=== PATIENT | female | born 1955 | race Caucasian/White ===

== ENCOUNTER 2020-12-31 13:48 | Outpatient (CLI) | payer MEDICARE | END 2020-12-31 13:49 | disposition home or self-care (01) | LOC: BICMAMMO 13:48 | PROVIDERS: ATTEND Family Medicine | DX: Z12.31 Encounter for screening mammogram for malignant neoplasm of breast (principal); M85.80 Other specified disorders of bone density and structure, unspecified site | CPT/HCPCS: 77063; 77067; 77080 ==

== ENCOUNTER 2023-11-02 08:53 | Day surgery (SDC) | payer OTHER ==
[2023-11-01 08:51] VITALS: BMI 26.5
[2023-11-02] MEDS ORDERED: PROPOFOL 20 ML ONE (09:42)
[2023-11-02] MEDS ORDERED: Lidocaine 2% PF 5 ML VIAL ONE (09:42)
[2023-11-02] MEDS ORDERED: fentaNYL PF 100 MCG/2 ML SYRINGE ONE (09:44)
[2023-11-02] MEDS ORDERED: Bupivacaine PF 0.5% 30 ML VIAL ONE (09:44)
[2023-11-02] MEDS ORDERED: Bacitracin Zinc Ointment 30 gm TUBE ONE (09:44)
[2023-11-02] MEDS ORDERED: Midazolam HCl 2 mg/2 ml Vial ONE (09:56)
[2023-11-02 10:00] LABS: #Eosinphils 0.1 thou/uL (0.0-0.7); #Monocytes 0.4 thou/uL (0.11-0.59); #Neutrophils 3.2 thou/uL (1.40-6.50); %Basophils 0.6 % (0.0-1.0); %Eosinophils 2.3 % (0.0-10.0); %Lymphocytes 27.7 % (21.0-51.0); %Monocytes 7.3 % (0.0-10.0); %Neutrophils 61.9 % (42.0-75.0); Hematocrit 38.4 % (36.0-47.0); Hemoglobin 12.5 g/dL (12.0-16.0); Mean Corpuscular HGB CONC 32.6 g/dL (32.0-36.0); Mean Corpuscular Hemoglobin 30.1 pg (27.0-31.0); Mean Corpuscular Volume 92.5 fl (78.0-98.0); Mean Platelet Volume 11.2 fL (7.4-10.4); Platelet Count 211 10x3/uL (130-400); RBC Distribution Width 12.8 % (11.5-14.5); Red Blood Cell (RBC) Count 4.15 mill/uL (4.20-5.40); White Blood Cell (WBC) Count 5.2 10x3/uL (4.8-10.8)
[2023-11-02] MEDS ORDERED: Sodium Chloride 0.9% 100 ML ONE (10:02)
[2023-11-02] MEDS ORDERED: CEFAZOLIN 2 GM VIAL ONE (10:02)
== END 2023-11-02 11:53 | disposition home or self-care (01) ==
LOC: SDC 08:53
PROVIDERS: ATTEND Orthopaedic Surgery Hand Surgery
PROC: 3E023GC Introduction of Other Therapeutic Substance into Muscle, Percutaneous Approach (ICD-10-PCS; principal; 2023-11-02)
DX: M62.422 Contracture of muscle, left upper arm (principal); M62.432 Contracture of muscle, left forearm; M65.331 Trigger finger, right middle finger; M65.4 Radial styloid tenosynovitis [de Quervain]; G56.02 Carpal tunnel syndrome, left upper limb; M65.311 Trigger thumb, right thumb; M65.312 Trigger thumb, left thumb; G80.8 Other cerebral palsy; I10 Essential (primary) hypertension; E78.5 Hyperlipidemia, unspecified; G40.909 Epilepsy, unspecified, not intractable, without status epilepticus; Z88.8 Allergy status to other drugs, medicaments and biological substances; Z90.710 Acquired absence of both cervix and uterus; Z79.899 Other long term (current) drug therapy
CPT/HCPCS: 64642; 85025; 93005; J0585; 93010; J0665; J2001; J2250; J2704; J3490

== ENCOUNTER 2024-02-11 08:27 | Day surgery (SDC) | payer OTHER ==
[2024-02-10 14:28] VITALS: BMI 26.1
[2024-02-11] MEDS ORDERED: Botulinum Toxin 200 UNITS VIAL IM SCH (09:15)
[2024-02-11] MEDS ORDERED: PROPOFOL 20 ML ONE (11:16)
[2024-02-11] MEDS ORDERED: Lidocaine 1% PF 5 ML VIAL ONE (11:16)
[2024-02-11] MEDS ORDERED: Sodium Chloride 0.9% 100 ML ONE (11:21)
[2024-02-11] MEDS ORDERED: CEFAZOLIN 2 GM VIAL ONE (11:21)
== END 2024-02-11 13:56 | disposition home or self-care (01) ==
LOC: SDC 08:27
PROVIDERS: ATTEND Orthopaedic Surgery Hand Surgery
PROC: 3E023GC Introduction of Other Therapeutic Substance into Muscle, Percutaneous Approach (ICD-10-PCS; principal; 2024-02-11)
DX: M62.422 Contracture of muscle, left upper arm (principal); M65.331 Trigger finger, right middle finger; M65.4 Radial styloid tenosynovitis [de Quervain]; M65.311 Trigger thumb, right thumb; M65.312 Trigger thumb, left thumb; G56.02 Carpal tunnel syndrome, left upper limb; M24.50 Contracture, unspecified joint; M24.532 Contracture, left wrist; G80.8 Other cerebral palsy; E78.5 Hyperlipidemia, unspecified; I10 Essential (primary) hypertension; M81.0 Age-related osteoporosis without current pathological fracture; G40.909 Epilepsy, unspecified, not intractable, without status epilepticus; Z98.890 Other specified postprocedural states; Z90.710 Acquired absence of both cervix and uterus; Z88.8 Allergy status to other drugs, medicaments and biological substances; Z79.899 Other long term (current) drug therapy
CPT/HCPCS: 64642; J0585 ×2; J2704; J3490

== ENCOUNTER 2024-06-15 12:17 | Outpatient (CLI) | payer OTHER ==
[2024-06-15 14:02] LABS: #Basophils 0.04 10x3/uL (0.0-0.2); %Basophils 0.6 % (0.0-1.0); %Eosinophils 3.7 % (0.0-10.0); %Lymphocytes 20.5 % (21.0-51.0); %Neutrophils 67.6 % (42.0-75.0); Hemoglobin 11.7 g/dL (12.0-16.0); Mean Corpuscular HGB CONC 32.5 g/dL (32.0-36.0); Mean Corpuscular Hemoglobin 29.5 pg (27.0-31.0); Mean Corpuscular Volume 90.9 fL (78.0-98.0); Mean Platelet Volume 11.5 fL (7.4-10.4); Platelet Count 225 10x3/uL (130-400); RBC Distribution Width 13.2 % (11.5-14.5); Red Blood Cell (RBC) Count 3.96 mill/uL (4.20-5.40)
[2024-06-15 14:22] LABS: Anion Gap 11 mmol/L (10-20); BUN (Urea Nitrogen) 24 mg/dL (9.8-20.1); Calc. Creatinine Clearance 0 mL/min (70-130); Calcium 9.7 mg/dL (7.8-10.44); Carbon Dioxide 23 mmol/L (23-31); Chloride 111 mmol/L (98-107); Estimated GFR 83; Glucose 84 mg/dL (80-115); Potassium 4.1 mmol/L (3.5-5.1); Sodium 141 mmol/L (136-145)
== END 2024-06-15 12:18 | disposition home or self-care (01) ==
LOC: LABBT 12:17
PROVIDERS: ATTEND Orthopaedic Surgery Hand Surgery
DX: Z01.818 Encounter for other preprocedural examination (principal); M24.542 Contracture, left hand; M20.032 Swan-neck deformity of left finger(s); G80.3 Athetoid cerebral palsy
CPT/HCPCS: 80048; 85025; 93005; 93010

== ENCOUNTER 2024-06-19 12:23 | Observation (INO) | payer OTHER ==
[2024-06-19] MEDS ORDERED: PROPOFOL 40 ML ONE (12:50)
[2024-06-19] MEDS ORDERED: Lidocaine 2% PF 5 ML VIAL ONE (12:52)
[2024-06-19] MEDS ORDERED: Bacitracin Zinc Ointment 30 gm TUBE ONE (13:17)
[2024-06-19] MEDS ORDERED: Bupivacaine PF 0.5% 30 ML VIAL ONE (13:17)
[2024-06-19] MEDS ORDERED: fentaNYL PF 100 MCG/2 ML SYRINGE ONE (13:48)
[2024-06-19] MEDS ORDERED: CEFAZOLIN 1 GM VIAL ONE (13:57)
[2024-06-19] MEDS ORDERED: ePHEDrine Sulfate 50 MG/10 ML VIAL ONE (14:00)
[2024-06-19] MEDS ORDERED: PHENYLEPHRINE-NS 100 MCG/ML 10 ML SYRINGE ONE (14:01)
[2024-06-19] MEDS ORDERED: Ondansetron PF 4 MG/2 ML Vial ONE (14:07)
[2024-06-19] MEDS ORDERED: Dexamethasone 4 mg/ml Vial ONE (14:07)
[2024-06-19] MEDS ORDERED: diphenhydrAMINE 50 MG/ML VIAL ONE (14:29)
[2024-06-19] MEDS ORDERED: fentaNYL 50 mcg/mL 1 mL Vial ONE (15:10)
[2024-06-19] MEDS ORDERED: Ondansetron PF 4 MG/2 ML Vial IVP PRN (17:40)
[2024-06-19] MEDS ORDERED: Promethazine HCl 25 MG/ML VIAL IM PRN (17:40)
[2024-06-19] MEDS ORDERED: traMADol HCl 50 MG TAB PO PRN (17:40)
[2024-06-19] MEDS ORDERED: TETANUS, DIPHTHERIA TOX,ADULT (TDVAX) 0.5 ML VIAL IM ONE (17:40)
[2024-06-19] MEDS ORDERED: Morphine 4 MG/ML VIAL SLOW IVP PRN (17:40)
[2024-06-19] MEDS ORDERED: fentaNYL 50 mcg/mL 1 mL Vial SLOW IVP PRN (17:40)
[2024-06-19] MEDS ORDERED: HYDROcodone/Acetaminophen 10/325 mg Tablet PO PRN (17:40)
[2024-06-19] MEDS ORDERED: Acetaminophen 325 MG TAB PO PRN (17:40)
[2024-06-19] MEDS ORDERED: Communication Order-Pharmacy FS SCH (17:45)
[2024-06-19 21:09] VITALS: BMI 31.1
[2024-06-19] MEDS: CEFAZOLIN 2 GM in Sodium Chloride 0.9% 100 ML IVPB SCH (21:29)
[2024-06-19] MEDS: Aspirin 81 mg Enteric Coated Tablet PO SCH (21:29)
[2024-06-19] MEDS ORDERED: FLU (Fluad Triv) TS24-25 (65UP)/MF59C/PF 45 MCG/0.5 ML Syringe IM ONE (22:30)
[2024-06-20] MEDS: HYDROcodone/Acetaminophen 5/325 mg Tablet PO PRN (02:40)
[2024-06-20 15:28] VITALS: BMI 31.1
[2024-06-21 04:32] VITALS: TEMP 98.5
[2024-06-21 09:38] VITALS: BP 137/87
== END 2024-06-21 14:15 | disposition home or self-care (01) ==
LOC: SDC 12:23 → MSONC 19:51
PROVIDERS: ADMIT Orthopaedic Surgery Hand Surgery; ATTEND Orthopaedic Surgery Hand Surgery
PROC: 0RBV0ZZ Excision of Left Metacarpophalangeal Joint, Open Approach (ICD-10-PCS; principal; 2024-06-19)
PROC: 0RGV0JZ Fusion of Left Metacarpophalangeal Joint with Synthetic Substitute, Open Approach (ICD-10-PCS; 2024-06-19)
DX: M19.042 Primary osteoarthritis, left hand (principal); M24.50 Contracture, unspecified joint; G80.8 Other cerebral palsy; M20.032 Swan-neck deformity of left finger(s); I10 Essential (primary) hypertension; Z98.890 Other specified postprocedural states; Z79.899 Other long term (current) drug therapy; Z88.8 Allergy status to other drugs, medicaments and biological substances; E78.5 Hyperlipidemia, unspecified; Z90.710 Acquired absence of both cervix and uterus
CPT/HCPCS: 26520; 26593 ×6; 26860; 64642; 73140; C1713; C1894; J0585; J0665; J0690; J1100; J1200; J2405; J2704; J3010